=== PATIENT | female | born 1950 | race Caucasian/White ===

== ENCOUNTER 2022-03-31 14:22 | Day surgery (SDC) | payer MEDICARE, OTHER ==
[2022-03-31] MEDS ORDERED: Sodium Chloride 0.9(Preservative Free) 10 ML IJ ONE (14:23)
[2022-03-31] MEDS ORDERED: Depo-Medrol 40 MG/ML IM ONE (14:23)
[2022-03-31] MEDS ORDERED: Lactated Ringers 1,000 ML IV ONE (15:54)
[2022-03-31] MEDS ORDERED: DIPRIVAN 200 MG/20 ML IV ONE (16:32)
[2022-03-31] MEDS ORDERED: Xylocaine-Mpf 2% 5 Ml Vial ONE (16:32)
--- NOTE | 2022-03-31 21:30 | XRAY ---
Indication: Right L3-L5 transforaminal JESUSITA. Intraoperative fluoroscopy provided for 28 seconds. 5 digital spot image submitted for interpretation demonstrates posterior needle tips projecting over the expected right L3 and L4 nerve roots. Small amount of contrast injected for needle tip placement. Correlate with intraoperative findings/report.
--- NOTE | 2022-04-01 09:19 | XRAY ---
28 seconds of fluoroscopy was used in surgery for a right L3-L5 transforaminal JESUSITA.
== END 2022-03-31 17:00 | disposition home or self-care (01) ==
LOC: SDC-PAIN 14:22
PROVIDERS: ATTEND Psychiatry & Neurology Pain Medicine
DX: M54.16 Radiculopathy, lumbar region (principal)
CPT/HCPCS: 64483; 64484; 72100; 77003; J1030; J2704; Q9966

== ENCOUNTER 2022-05-12 11:48 | Day surgery (SDC) | payer MEDICARE, OTHER ==
[2022-05-12] MEDS ORDERED: Depo-Medrol 40 MG/ML IM ONE (11:49)
[2022-05-12] MEDS ORDERED: BUPIVACAINE 0.5% VIAL IJ ONE (11:49)
[2022-05-12] MEDS ORDERED: DIPRIVAN 200 MG/20 ML IV ONE (14:34)
[2022-05-12] MEDS ORDERED: Lactated Ringers 1,000 ML IV ONE (15:28)
--- NOTE | 2022-05-12 16:48 | XRAY ---
Indication: Bilateral SI joint injection. Intraoperative fluoroscopy provided for 17 seconds. 4 digital spot image submitted for interpretation demonstrates posterior needle tip projecting over the left and right SI joint. Correlate with intraoperative findings/report.
--- NOTE | 2022-05-13 08:39 | XRAY ---
17 seconds of fluoroscopy was used in surgery for a bilateral sacroiliac joint injection.
== END 2022-05-12 14:55 | disposition home or self-care (01) ==
LOC: SDC-PAIN 11:48
PROVIDERS: ATTEND Psychiatry & Neurology Pain Medicine
DX: M46.1 Sacroiliitis, not elsewhere classified (principal); Z79.899 Other long term (current) drug therapy
CPT/HCPCS: 01992; 27096; 72202; 77002; G0260; J1030; J2704